=== PATIENT | male | born 1970 | race Caucasian/White ===

== ENCOUNTER 2016-09-15 20:08 | Emergency (ER) | payer OTHER ==
[~2016-09-15] VITALS: Ht 165.1 cm; Wt 74.8 kg
[~2016-09-15 20:08] MED LIST: Z.0.NO CURRENT MEDS
[2016-09-15 20:34] VITALS: BP 125/91; PULSE 70; RESP 18; TEMP 97.8; O2SAT 100
[2016-09-15] MEDS ORDERED: SODIUM CHLOR 0.9% 1000 ML INJ 1,000 ML IV SCH (23:00)
[2016-09-15] MEDS ORDERED: ONDANSETRON HCL 4 MG/2 ML VIAL IVP ONE (23:00)
[2016-09-15] MEDS ORDERED: SODIUM CHLORIDE 0.9% FLUSH 5 ML FLUSH IVF PRN (23:00)
[2016-09-15] MEDS ORDERED: MORPHINE SULFATE 4 MG/ML INJ IV PUSH ONE (23:00)
[2016-09-15] MEDS ORDERED: HYDROmorphone HCL PF 1 MG/ML VIAL IV PUSH ONE (23:15)
[2016-09-15 23:17] LABS: AUTOMATED NEUTROPHIL # 8.9 TH/MM3 (1.8-7.7); BASOPHIL # 0.5 TH/MM3 (0-0.2); BASOPHIL % 4.2 % (0.0-2.0); EOSINOPHIL % 0.3 % (0.0-4.0); HEMATOCRIT 45.8 % (39.0-51.0); HEMO FLAGS DIFF FINAL; LYMPH % 22.7 % (9.0-44.0); LYMPHOCYTE # 2.9 TH/MM3 (1.0-4.8); MEAN CELL VOLUME 91.1 FL (80.0-100.0); MEAN CORPUSCULAR HEMOGLOBIN 30.7 PG (27.0-34.0); MEAN CORPUSCULAR HGB CONC 33.8 % (32.0-36.0); MONO % 4.3 % (0.0-8.0); NEUT % 68.5 % (16.0-70.0); PLATELET COUNT 311 TH/MM3 (150-450); RED BLOOD COUNT 5.04 MIL/MM3 (4.50-5.90); WHITE BLOOD COUNT 12.8 TH/MM3 (4.0-11.0)
[2016-09-15 23:25] LABS: POTASSIUM 4.1 MEQ/L (3.5-5.1)
[2016-09-15 23:26] VITALS: BP 132/79; PULSE 73; RESP 16; O2SAT 96
[2016-09-15 23:28] LABS: BICARBONATE 25.1 MEQ/L (21.0-32.0)
[2016-09-15 23:30] LABS: APTT (PATIENT) 25.1 SEC (24.3-30.1); PROTHROMBIN TIME - PATIENT 11.4 SEC (9.8-11.6)
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
[2016-09-16] MEDS ORDERED: HYDROmorphone HCL PF 1 MG/ML VIAL IV PUSH ONE ×2 (00:30→03:45)
--- NOTE | 2016-09-16 00:39 | RADHPO ---
EXAM DATE/TIME: 09/15/2016 23:33 [facility] COMPARISON: No previous studies available for comparison. INDICATIONS : Left tibia pain from injury tonight. MEDICAL HISTORY : None. SURGICAL HISTORY : None. ENCOUNTER: Initial ACUITY: 1 day PAIN SCORE: 8/10 LOCATION: Left tibia. FINDINGS: 4 views left tibia and fibula. Bone alignment within normal limits. No evidence of fracture. CONCLUSION: No evidence of fracture. Sean Vincent MD on September 16, 2016 at 0:37 Board Certified Radiologist. This report was verified electronically.
--- NOTE | 2016-09-16 00:42 | RADHPO ---
EXAM DATE/TIME: 09/15/2016 23:38 [facility] COMPARISON: No previous studies available for comparison. INDICATIONS : Left femur pain from injury tonight. MEDICAL HISTORY : None. SURGICAL HISTORY : None. ENCOUNTER: Initial ACUITY: 1 day PAIN SCORE: 8/10 LOCATION: Left femur. FINDINGS: 4 views left femur. Bone alignment within normal limits. No evidence of fracture. CONCLUSION: No evidence of fracture. Sean Vincent MD on September 16, 2016 at 0:38 Board Certified Radiologist. This report was verified electronically.
--- NOTE | 2016-09-16 00:44 | RADHPO ---
EXAM DATE/TIME: 09/15/2016 23:43 [facility] COMPARISON: No previous studies available for comparison. INDICATIONS : Left hip pain from injury tonight. MEDICAL HISTORY : None. SURGICAL HISTORY : None. ENCOUNTER: Initial ACUITY: 1 day PAIN SCORE: 8/10 LOCATION: Left hip. FINDINGS: 4 views left hip. Bone alignment within normal limits. No evidence of fracture. CONCLUSION: No evidence of fracture. Sean Vincent MD on September 16, 2016 at 0:41 Board Certified Radiologist. This report was verified electronically.
[2016-09-16 01:06] VITALS: BP 132/59; PULSE 68; RESP 18; O2SAT 96
[2016-09-16] MEDS ORDERED: IOHEXOL 350 MG/ML 10 ML VIAL (for RAD DIAG) IV ONE (02:37)
[2016-09-16 03:25] VITALS: BP 119/64; PULSE 64; RESP 16; O2SAT 98
--- NOTE | 2016-09-16 03:31 | RADHPO ---
EXAM DATE/TIME: 09/16/2016 02:18 [facility] COMPARISON: No previous studies available for comparison. INDICATIONS : Trauma. Left knee pain. Evaluate for vascular injury. IV CONTRAST: 75 cc Omnipaque 350 (iohexol) IV RADIATION DOSE: 13.73 CTDIvol (mGy) MEDICAL HISTORY : None SURGICAL HISTORY : None. ENCOUNTER: Initial ACUITY: 1 day PAIN SCALE: 10/10 LOCATION: Left knee. TECHNIQUE: Volumetric scanning of the knee was performed. Using automated exposure control and adjustment of th e mA and/or kV according to patient size, radiation dose was kept as low as reasonably achievable to obtain optimal diagnostic quality images. FINDINGS: BONES: No evidence of fracture. Alignment is within normal limits. JOINTS: Small knee joint effusion. No evidence of joint narrowing. SOFT TISSUES: Quadriceps tendon and patellar tendon are intact. Integrity of the menisci cannot be evaluated on CT without intra-articular contrast. Integrity of the ACL also cannot be reliably evaluated on this stud y. The PCL is intact. The popliteal artery is intact. The other neurovascular structures are grossly within normal limits. CONCLUSION: Small knee joint effusion. Otherwise within normal limits. Sean Vincent MD on September 16, 2016 at 3:24 Board Certified Radiologist. This report was verified electronically.
[2016-09-16] MEDS ORDERED: KETOROLAC TROMETHAMINE 30 MG/ML (IVP) VIAL IV PUSH ONE (03:45)
[2016-09-16] MEDS ORDERED: ONDANSETRON HCL 4 MG/2 ML VIAL IV PUSH ONE (03:45)
[2016-09-16 04:05] VITALS: BP 117/73; PULSE 72; RESP 16; O2SAT 93
--- NOTE | 2016-09-16 04:31 | RADHPO ---
EXAM DATE/TIME: 09/16/2016 03:57 [place] Corrected on: September 16, 2016; [facility] COMPARISON: No previous studies available for comparison. INDICATIONS : Left ankle pain. MEDICAL HISTORY : None. SURGICAL HISTORY : None. ENCOUNTER: Initial ACUITY: 1 day PAIN SCORE: 8/10 LOCATION: Left Ankle FINDINGS: 3 views of the left ankle. Bone alignment within normal limits. No evidence of fracture. CONCLUSION: No evidence of fracture. Sean Vincent MD on September 16, 2016 at 4:26 Board Certified Radiologist. This report was verified electronically. Sean Vincent MD on September 16, 2016 at 5:46 Board Certified Radiologist. This report was verified electronically.
[2016-09-16] MEDS ORDERED: PERC5TAB12 PO (04:47)
[2016-09-16] MEDS ORDERED: ROBA750T PO (04:47)
[2016-09-16] MEDS ORDERED: IBUP800T23 PO (04:47)
== END 2016-09-16 05:47 | disposition home or self-care (01) ==
LOC: PHED 20:08
DX: M25.462 Effusion, left knee (principal); W50.1XXA Accidental kick by another person, initial encounter; Y93.75 Activity, martial arts; Y92.9 Unspecified place or not applicable
CPT/HCPCS: 73502; 73552; 73590; 73610; 73701; 80048; 85025; 85610; 85730; 96374; 96375; 96376; 99284; J1170; J1885; J2405; J7030; L1830; Q9967

== ENCOUNTER 2016-09-16 16:34 | Emergency (ER) | payer OTHER ==
[~2016-09-16] VITALS: Ht 165.1 cm; Wt 76.0 kg
[~2016-09-16 16:34] MED LIST changes: +IBUP800T23 PO; +PERC5TAB12 PO; +ROBA750T PO; -Z.0.NO CURRENT MEDS
[2016-09-16 16:43] VITALS: BP 149/84; PULSE 68; RESP 14; TEMP 97.9; O2SAT 99
--- NOTE | 2016-09-16 17:07 | PD ---
HPI . left leg injury that occurred yesterday Chief Complaint: Injury Time Seen by Provider: 16:55 Travel History International Travel<30 days: No Contact w/Intl Traveler<30days: No Traveled to known affect area: No History of Present Illness HPI 46-year-old male here for return visit. He was seen by Dr. Velasco last night for left leg injury. Apparently he has had some discoloration overnight and was told to return to ED for MRI per Dr. Velasco's request. Patient tells me that in the upright position his foot is turning purple. There was some concern for a crush injury versus compartment syndrome, which is why patient was told to return to the ED. He does have an appointment with orthopedics on at 8:30 AM. Both myself and Dr. Chung have seen the patient. PENDING SALE TO [facility] Past Medical History Medical History: Denies Significant Hx Diminished Hearing: No Immunizations Current: Yes Tetanus Vaccination: < 5 Years Influenza Vaccination: No Past Surgical History Genitourinary Surgery: Yes (VASECTOMY) Social History Alcohol Use: No Tobacco Use: No Substance Use: No Allergies-Medications (Allergen,Severity, Reaction): Coded Allergies: No Known Allergies (Verified , 09/16/16) Reported Meds & Prescriptions Reported Meds & Active Scripts Active Ibuprofen 800 Mg Tab 800 Mg PO Q8H PRN Robaxin (Methocarbamol) 750 Mg Tab 750 Mg PO Q6HR Percocet (Oxycodone-Acetaminophen) 5-325 mg Tab 1-2 Tab PO Q6H PRN Review of Systems General / Constitutional: No: Fever Eyes: No: Visual changes HENT: No: Headaches Cardiovascular: No: Chest Pain or Discomfort Respiratory: No: Shortness of Breath Gastrointestinal: No: Abdominal Pain Genitourinary: No: Dysuria Musculoskeletal: Positive: Pain (left hip/knee) Skin: Positive Other (intermittent discoloration of left foot), No Rash Neurologic: No: Weakness Psychiatric: No: Depression Endocrine: No: Polydipsia Hematologic/Lymphatic: No: Easy Bruising Physical Exam Narrative GENERAL: AAO x 3, no acute distress, Well-nourished, well-developed patient. SKIN: Warm and dry. No visible rashes or bruising. HEAD: Normocephalic and atraumatic. EYES: No scleral icterus. No injection or drainage. ENT: No nasal drainage noted. Mucous membranes pink. Airway patent. NECK: Supple, trachea midline. No JVD. CARDIOVASCULAR: Regular rate and rhythm without murmurs, gallops, or rubs. RESPIRATORY: Breath sounds equal bilaterally. No accessory muscle use. No rhonchi or rales. GASTROINTESTINAL: Abdomen soft, non-tender, nondistended. EXTREMITIES: left ankle with slight ecchymosis and trace edema. No evidence of compartment syndrome. Muscles are nice and loose. There seems to be a hematoma formation on the left lateral thigh.Leg brace in place. BACK: Nontender without obvious deformity. No CVA tenderness. PSYCH: AAO x 3, normal affect. Data Data Last Documented VS Vital Signs Date Time Temp Pulse Resp B/P Pulse Ox O2 Delivery O2 Flow Rate FiO2 09/16/16 16:43 97.9 68 14 149/84 99 Room Air [facility] Medical Decision Making Medical Screen Exam Complete: Yes Emergency Medical Condition: Yes Medical Record Reviewed: Yes Differential Diagnosis Internal derangement of knee, possible hip fracture, less likely compartment syndrome Narrative Course 46-year-old male here for return visit. He was seen by Dr. eVlasco last night for left leg injury. Apparently he has had some discoloration overnight and was told to return to ED for MRI per Dr. Velasco's request. Patient tells me that in the upright position his foot is turning purple. There was some concern for a crush injury versus compartment syndrome, which is why patient was told to return to the ED. He does have an appointment with orthopedics on at 8:30 AM. Both myself and Dr. Chung have seen the patient. Patient seen by both myself and Dr. Chung. We both believe this MRI can be done as an outpatient. There does not seem to be any acute indication for a stat MRI. Patient has a follow-up with orthopedic on . Dr. Chung discussed with Dr. Velasco. Patient opted to have MRI done on outpatient basis. He thanked us for his care. Diagnosis Primary Impression: Derangement of knee, left Patient Instructions: General Instructions Additional Instructions: Please return to emergency department if your symptoms return or worsen. Follow up with your primary care provider. Follow up with orthopedic. Take medications as prescribed. Med/Other Pt SpecificInfo: No Change to Meds Disposition: 01 DISCHARGE HOME Condition: Stable Mangali,Sheron PA Sep 16, 2016 17:07
--- NOTE | 2016-09-16 17:38 | PD ---
Data Data Last Documented VS Vital Signs Date Time Temp Pulse Resp B/P Pulse Ox O2 Delivery O2 Flow Rate FiO2 09/16/16 16:43 97.9 68 14 149/84 99 Room Air MDM Supervised Visit with JAZZ: Yes Narrative Course Patient seen and examined by me. Patient has knee immobilizer that is somewhat too tight. Likely explains his symptoms of dependent foot color change. It is removed, patient examined and no further dependent color change seen. Does have knee effusion and likely has ligamentous tear. Hematoma forming on upper outer thigh but no symptoms of compartment syndrome. Discussed follow up with pcp and return to ED criteria. Diagnosis Primary Impression: Left leg pain Patient Instructions: General Instructions Additional Instruction: Please return to emergency department if your symptoms return or worsen. Follow up with your primary care provider. Follow up with orthopedic. Take medications as prescribed. Disposition: 01 DISCHARGE HOME Condition: Stable Francisco Chung MD Sep 16, 2016 17:38
== END 2016-09-16 17:50 | disposition home or self-care (01) ==
LOC: PHED 16:34 → PHEFT 17:50
DX: M23.92 Unspecified internal derangement of left knee (principal); M79.605 Pain in left leg
CPT/HCPCS: 99281

== ENCOUNTER → 2016-10-03 | Day surgery (SDC) | payer OTHER ==
[~2016-10-03] MED LIST changes: +BACITRACIN IM FOR SOLN 50,000 UNIT VIAL ONE; +BUPIVACAINE HCL PF 0.75% 30 ML VIAL ONE; +EPINEPHrine HCL (1:1000) 30 MG/30 ML VIAL ONE; +LACTATED RINGER'S 1000 ML INJ 1,000 ML ONE; +LIDOCAINE 1.5%/EPINEPHrine 1:200,000 PF SOLN 30 ML AMP ONE; +MEPERIDINE HCL 25 MG/ML VIAL ONE; +MIDAZOLAM HCL 5 MG/ML VIAL (1 ML) ONE; +ONDANSETRON HCL 4 MG/2 ML VIAL IV PUSH ONE; +ONDANSETRON HCL 4 MG/2 ML VIAL ONE; +PROPOFOL 200 MG/20 ML AMP IV ONE; +SODIUM CHLORIDE 0.9% 20 ML VIAL ONE; +ceFAZolin 2 GM PREMIX 50 ML ONE; +ceFAZolin INJ 1,000 MG VIAL ONE
--- NOTE | 2016-10-08 07:04 | MP ---
cc: [facility] M.D. DATE OF SURGERY 10/03/2016 PREOPERATIVE DIAGNOSIS Left knee anterior cruciate ligament tear, left knee lateral meniscus tear. POSTOPERATIVE DIAGNOSES Left knee anterior cruciate ligament tear, left knee lateral meniscus tear. PROCEDURE Left knee arthroscopic assisted anterior cruciate ligament allograft reconstruction, left knee arthroscopic partial lateral meniscectomy. SURGEON Dr. [facility] ANESTHESIA General with a femoral nerve block. BLOOD LOSS Less than 50 cc TOURNIQUET TIME Zero minutes COMPLICATIONS None JUSTIFICATION This patient is a 46-year-old male who sustained traumatic injury to his left knee. This resulted in complete disruption of the anterior cruciate ligament as well as a bucket-handle tear lateral meniscus. He was evaluated by the undersigned in the [facility]. Clinical exam, as well as MRI confirmed the above-named findings. The patient was counseled as to the risks, benefits and alternatives to the above-named proposed surgical procedure. He did wish to proceed with surgery. PROCEDURE IN DETAIL A written consent was obtained. The patient identified by name, taken to the operating room, placed in the supine position and general anesthesia was administered, as well 2 grams of IV Ancef. He did receive a preoperative femoral nerve block by the anesthesiologist. A well-padded tourniquet placed on the left thigh, however this was not inflated. The left thigh carefully placed in a well-padded leg trujillo. The left lower extremity prepped and draped using isopropyl alcohol, Hibiclens solution and DuraPrep solution. After time-out was performed, a standard medial and lateral parapatellar arthroscopic portal was established. The patellofemoral joint revealed no significant chondromalacia. The medial compartment revealed evidence of meniscal bruising and slight grade 2 chondromalacia in the posterior portion of the medial femoral condyle. No unstable displaced meniscal tissue was seen upon probing. The intercondylar notch revealed a complete destruction of the cruciate ligament lateral. The lateral compartment revealed a complex bucket-handle tear of the lateral meniscus. An arthroscopic biter, followed by an arthroscopic shaver was introduced in the lateral compartment to perform a lateral meniscectomy. The meniscal rim was probed and noted to be stable after meniscectomy. A shaver used to perform a debridement of the torn anterior cruciate ligament. An arthroscopic bur was used to perform a notchplasty. An Arthrex retro cutting tibial guide centered within the footprint of the [place] ACL was used to capture a 10 mm drill bit. The tibial tunnel was retro cut 10 mm in diameter. A shaver was used to clean soft tissue and bone debris from within the knee joint. The Arthrex 7-mm [id number] medial portal guide was placed along the [place] origin of the anterior cruciate ligament along the lateral femoral condyle. A guide pin was drilled exiting the lateral femoral condyle and a low profile 10 mm cannulated reamer was drilled to a depth of 30 mm. The shaver was again used to clean soft tissue and bone debris from within the knee joint. At this point, a FiberLink suture was shuttled from the tibial tunnel exiting femoral tunnel. On the back table, the posterior tibialis tendon allograft was thawed in antibiotic solution. Albino Mora, Physician Pcb Designer Certified, was instrumental in fashioning the graft to a folded diameter of 10 mm. A #2 FiberWire whipstitch was placed in the proximal and distal portion of the graft. The graft free tensioned on the back table. An Arthrex tightrope anchor was placed along the portion of the graft. The sutures from the anchor were placed through the eyelet of the FiberLink suture and then shuttled from the tibial tunnel exiting the femoral tunnel. The tightrope button was then pulled distally to the lateral cortex of the femoral tunnel and obtained excellent purchase and fixation. The graft was then pulled all the way from the tibial tunnel and did well seated into the femoral tunnel. The graft was taken through a full range of motion. No evidence of pistoning or impingement. With the leg held in near full extension, a guidewire was placed along the anterior border of the graft and an Arthrex 9 x 28 mm bioabsorbable Delta screw was used for interference fixation on the tibial side. An intraoperative Mane examination was performed which was negative. The graft exiting the tibial tunnel was removed with a 15 blade scalpel. The tibial incision was closed with 3-0 Vicryl suture. Skin incisions were closed with 3-0 Prolene. A sterile dressing applied. The patient tolerated the procedure well with no intraoperative complications noted. Albino Mora, Physician Pcb Designer Certified, was present during the entire procedure to include patient positioning, and the procedure itself. The medical necessity of a physician project construction assistant manager was indicated in this case due to the complexity of the procedure. He assisted with appropriate manipulation of the leg and also manipulation of the camera. He assisted with both fashioning and preparation of the graft, as well as drilling of tunnels, implantation of the graft and implantation of internal fixation devices for purposes of reconstruction. MD ROSALVA Mendieta/PAPA /11:22 AM /6:44 AM
== END | disposition home or self-care (01) ==
LOC: ESDC 08:23
PROVIDERS: ATTEND Orthopaedic Surgery Sports Medicine
DX: S83.512A Sprain of anterior cruciate ligament of left knee, initial encounter (principal); S83.252A Bucket-handle tear of lateral meniscus, current injury, left knee, initial encounter
CPT/HCPCS: 01400; 01991; 29881; 29888; 64447; C1713; J0171; J0690; J2175; J2250; J2405; J3010; J7120